=== PATIENT | male | born 1955 | race Caucasian/White ===

== ENCOUNTER 2016-05-23 08:28 | Day surgery (SDC) | payer BC ==
[~2016-05-23 08:28] MED LIST: PROPOFOL 500 MG/50 ML EMU IV ONE
[2016-05-23 09:59] VITALS: RESP 18; TEMP 97.6
[2016-05-23 10:15] VITALS: BP 158/100; PULSE 72; O2SAT 97
== END 2016-05-23 10:24 | disposition home or self-care (01) ==
LOC: SURG 08:28
PROVIDERS: ATTEND Surgery
DX: Z12.11 Encounter for screening for malignant neoplasm of colon (principal); Z86.010 Personal history of colon polyps; K57.30 Diverticulosis of large intestine without perforation or abscess without bleeding
CPT/HCPCS: 45378; J2704